=== PATIENT | female | born 1995 | race Caucasian/White ===

== ENCOUNTER 2018-02-16 21:18 | Emergency (ER) | payer OTHER, SELFPAY ==
[2018-02-16 21:33] VITALS: BP 135/93; PULSE 110; RESP 16; TEMP 36.9; O2SAT 98; BMI 33.9
[2018-02-16 22:11] LABS: Bacteria Urine Few (2-10); RBC Urine None Seen (0-5/HPF); Squamous Epithelial Cell Urine 0-1 /HPF; WBC Urine 0-1/HPF (0-5/HPF)
[2018-02-16 22:12] LABS: Culture Indicated Urine Specimen Cultured
[2018-02-16 23:00] VITALS: BP 135/93; PULSE 110; RESP 16; TEMP 36.9; O2SAT 98; BMI 33.9
[2018-02-16 23:30] VITALS: BP 128/95; PULSE 102; RESP 20; TEMP 36.6; O2SAT 99
[2018-02-16] MEDS: ONDANSETRON 4 MG ODT PREPACK 1 BOTTLE MISC (23:53)
[2018-02-16] MEDS: HYDROCODONE/ACET 5/325 PREPACK 1 BOTTLE MISC (23:55)
[2018-02-16] MEDS: cephALEXin 250 MG PREPACK 1 BOTTLE MISC (23:55)
--- NOTE | 2018-02-17 03:17 | ED.ABDPAIN ---
HPI - Abdominal Pain General Chief Complaint: Abdominal Pain Stated Complaint: LT SIDED PAIN, BACK TO FRONT Time Seen by Provider: 02/16/18 21:57 Source: patient Mode of arrival: ambulatory Limitations: no limitations History of Present Illness HPI narrative: Patient presents with the chief complaint of some left flank pain gradually worsening over the past day or 2. She denies any dysuria, frequency or urgency. She denies any obvious injury. She did take a warm bath and states that helped her symptoms a bit. She denies fever, chills nor nausea or vomiting. She states the pain is made worse with motion and improves with rest. She states it radiates around to her left lower abdomen. She denies vaginal bleeding or discharge. She has had no change in bowel habits MD complaint: flank pain Onset (ago): hour(s) Pain Consistency: constant Location: L flank Severity: mild Quality: cramping and aching Radiation: LLQ and L flank Migration to: no migration Relieving factors: rest Exacerbating factors: movement Associated symptoms: denies other symptoms Treatments prior to arrival: NSAIDs Related Data Previous Rx's Medication Instructions Recorded cephalexin [Keflex] 500 mg PO QID 10 Days #40 cap 02/16/18 Review of Systems Review of Systems All systems reviewed & are unremarkable except as noted in HPI and below Constitutional Denies chills, Denies fever(s), Denies lethargy and Denies weakness Eyes Denies change in vision, Denies eye discharge, Denies irritation and Denies loss of vision ENT Ears, Nose, Mouth, and Throat: Denies change in voice, Denies neck pain and Denies sore throat Cardiovascular Denies chest pain, Denies irregular heart rhythm, Denies lightheadedness, Denies palpitations, Denies dyspnea, Denies dyspnea on exertion and Denies orthopnea Respiratory Denies cough, Denies dyspnea, Denies dyspnea on exertion and Denies wheezing Gastrointestinal Gastrointestinal: Reports abdominal pain, Denies change in bowel habits, Denies diarrhea, Denies nausea and Denies vomiting Genitourinary Denies hematuria, Denies flank pain, Denies urinary incontinence and Denies urinary urgency Musculoskeletal Denies neck pain Integumentary/Breasts Denies pruritus, Denies erythema, Denies rash and Denies wounds Neurologic Denies confusion, Denies loss of vision and Denies weakness Psychiatric Denies anxiety, Denies confusion, Denies depression, Denies homicidal ideation and Denies suicidal ideation Endocrine Denies palpitations Hematologic/Lymphatic Denies easy bruising Allergic/Immunologic Denies wheezing Exam Narrative Exam Narrative: Pleasant 23-year-old female resting comfortably, no obvious distress Initial Vital Signs Initial Vital Signs: Vital Signs Temperature 98.5 F 02/16/18 21:33 Pulse Rate 110 H 02/16/18 21:33 Respiratory Rate 16 02/16/18 21:33 Blood Pressure 135/93 H 02/16/18 21:33 Pulse Oximetry 98 02/16/18 21:33 Const General: cooperative and well developed Nutritional Appearance: well nourished Orientation: alert, awake, oriented x3 and not confused HENMO Head: normocephalic and atraumatic Ears: external ears normal and TM's normal bilaterally Nose: external nose normal and No nasal discharge Face and sinus: sinuses nontender, face symmetric, no sinus tenderness and No dry mucous membranes Mouth: oral mucosae normal and moist mucous membranes Teeth and gingiva: dentition normal Throat: tonsils normal and uvula midline Eyes General: appearance normal, both eyes and all related structures Eyelids: eyelids normal Conjunctivae: conjunctivae normal Sclera: sclerae normal Pupils: PERRL EOM: EOM intact bilaterally Chest Chest: normal inspection of the chest Cardio Rate: regular rate Rhythm: regular rhythm Heart Sounds: no click, no gallops, no murmurs and no rubs Pulses: normal peripheral pulses GI Inspection: non-distended Palpation: soft, no hepatosplenomegaly, No guarding, No pulsatile mass and tender (Left lower quadrant) Auscultation: normal bowel sounds Back/Spine/Pelvis Thoracic/Lumbar Spine: lumbar spinal tenderness (Over paraspinal musculature and left side) Skin General: no rashes or lesions noted Lesions: no lesions Rashes: no rashes Trauma: no lacerations or abrasions Neuro General: alert, awake and oriented x3 Cognition: normal cognition Speech: speech normal Gait: normal gait Motor: muscle tone normal throughout Sensory Exam: no sensory deficits noted DTR's: Rt Patellar: 2+ and Lt Patellar: 2+ Extrem General: full ROM, no clubbing, cyanosis or edema, no pedal edema and no calf tenderness Psych Appearance: well kempt Mental Status: mental status grossly normal Attitude: cooperative Thought Content: normal and suicidality Judgment: judgment good Course Orders Ordered: ED Orders 02/16/18 21:50 Urine Culture Stat Urine Microscopic Stat Discontinued Medications Hydrocodone Bitart/Acetaminophen (Vicodin Prepack) 1 bottle MISC SEEINSTR ONE Stop: 02/16/18 23:48 Last Admin: 02/16/18 23:55 Dose: 1 bottle Cefazolin Sodium (Keflex) 1 bottle MISC SEEINSTR ONE Stop: 02/16/18 23:48 Last Admin: 02/16/18 23:55 Dose: 250 mg Ondansetron HCl (Zofran Odt Prepack) 1 bottle MISC SEEINSTR ONE Stop: 02/16/18 23:48 Last Admin: 02/16/18 23:53 Dose: 1 bottle Vital Signs - 8 hr 02/16/18 21:33 02/16/18 23:00 02/16/18 23:30 Temperature 98.5 F 98.5 F 97.9 F Pulse Rate 110 H 110 H 102 H Respiratory Rate 16 16 20 Blood Pressure 135/93 H 135/93 H Blood Pressure [Right Arm] 128/95 H Pulse Oximetry 98 98 99 MDM - Abdominal Pain Differential Diagnosis Differential diagnosis: Likely abdominal pain, calculus of kidney, constipation, endometriosis, gastroenteritis, pancreatitis, small bowel obstruction and other Lab Data Lab Results 02/16/18 Range/Units 21:50 Urine RBC None seen (0-5/HPF) Urine WBC 0-1/hpf (0-5/HPF) Ur Squamous Epith Cells 0-1 /hpf Urine Bacteria Few (2-10) H (None) Ur Culture Indicated? Specimen cultured Micro UA Comment Not Reportable Point of care testing: Point of Care Testing Test Results Negative Urine Dip Bedside Urine Glucose Negative Bedside Urine Bilirubin - Negative Bedside Urine Ketone - Negative Urine Specific [place] 1.020 Bedside Urine Occult Blood - Negative Bedside Urine pH 6.5 Bedside Urine Protein - Negative Bedside Urine Urobilinogen - Negative Bedside Urine Nitrite - Negative Bedside Urine Leukocytes + 70 Esterase Discharge Plan Departure Patient Disposition: Home, Self-Care Clinical Impression: Acute left flank pain, Pyelonephritis Discharge Date/Time: 02/17/18 00:08 Interventions: ED Discharge Assessment Last Done: 02/17/18 00:07 Activity Restrictions/Additional Instructions: *You have been diagnosed with [ left flank pain and possible pyelonephritis ] *What to do: *Take medications as directed *Follow up with your primary care provider in 2-3 days *Return to ER if you should have any new, worsening or concerning symptoms Prescriptions: New cephalexin [Keflex] 500 mg capsule 500 mg PO QID 10 Days Qty: 40 RF: 0
== END 2018-02-17 00:08 | disposition home or self-care (01) ==
PROVIDERS: Emergency Provider Emergency Medicine
DX: R10.9 Unspecified abdominal pain (principal); N12 Tubulo-interstitial nephritis, not specified as acute or chronic
CPT/HCPCS: 81003; 81015; 81025; 87086; 99282; 99283